=== PATIENT | female | born 1945 | race African-American/Black ===

== ENCOUNTER → 2016-09-02 | Outpatient (CLI) | payer MEDICARE, OTHER | LOC: WI 11:16 | PROVIDERS: ATTEND Internal Medicine | DX: Z12.31 Encounter for screening mammogram for malignant neoplasm of breast (principal) | CPT/HCPCS: 77067; G0202 ==

== ENCOUNTER → 2017-09-14 | Outpatient (CLI) | payer MEDICARE, OTHER ==
--- NOTE | 2017-09-14 12:47 | WOMENS IMAGING REPORT ---
EXAM DESCRIPTION: 3D SCREENING MAMMO BILAT COMPLETED DATE/TIME: 09/14/2017 12:25 pm REASON FOR STUDY: ROUTINE SCREENING;Z12.31 COMPARISON: [id number] TECHNIQUE: Standard craniocaudal and mediolateral oblique views of each breast recorded using digita l acquisition and breast tomosynthesis. LIMITATIONS: None. FINDINGS: No masses, calcifications or architectural distortion. No areas of suspicion. Read with the assistance of CAD. .[facility] - R2 Cenova Version 1.3 .[facility] Imaging - R2 Cenova Version 1.3 .[facility] - R2 Cenova Version 2.4 .[facility] [place] R2 Cenova Version 2.4 .[facility] - R2 Supervisory Training Specialist Version 9.2 IMPRESSION: NORMAL MAMMOGRAM. BIRADS 1. BREAST DENSITY: b. There are scattered areas of fibroglandular density. BIRAD: 1 NEGATIVE RECOMMENDATION: ROUTINE SCREENING COMMENT: The patient has been notified of the results by letter per MQSA requirements. Additional no tification policies are in place for contacting patient with suspicious or incomplete findings. Quality ID #[id number]: The [employer] recommends an annual screening mammogram for women aged 40 years or over. This facility utilizes a reminder system to ensure that all patients receive reminder letters, and/or direct phone calls for appointments. This includes reminders for routine scr eening mammograms, diagnostic mammograms, or other Breast Imaging Interventions when appropriate. Th is patient will be placed in the appropriate reminder system. The [employer] (ACR) has developed recommendations for screening MRI of the breast s in certain patient populations, to be used in conjunction with mammography. Breast MRI surveillanc e may be appropriate for women with more than 20% lifetime risk of developing breast cancer as deter mined by genetic testing, significant family history of the disease, or history of mantle radiation f or Hodgkins Disease. ACR Practice Guidelines 2008. DBT Technology DBT is a type of tomographic mammography. With conventional mammography, overlapping breast tissue ma y make lesions difficult to detect, even with good compression. DBT uses an x-ray tube that rotates a round the breast, taking images at different angles. These images are then combined to create thin sl ices of the breast that the radiologist can view as a 3D reconstruction. The [employer] unit can perform full-field digital mammograms (2D imaging); or DBT (3D imaging); or both, in a combination mode that quickly performs both the mammogram and the tomosynthesis scan while the breast is still compressed. PQRS 6045F: Fluoroscopic imaging is not utilized for breast tomosynthesis. TECHNICAL DOCUMENTATION: FINDING NUMBER: (1) ASSESSMENT: (1) JOB ID: [id number] [employer]- All Rights Reserved Reading location - IP/workstation name: [email or web address]
== END ==
LOC: WI 10:31
PROVIDERS: ATTEND Internal Medicine
DX: Z12.31 Encounter for screening mammogram for malignant neoplasm of breast (principal)
CPT/HCPCS: 77063; 77067

== ENCOUNTER → 2018-09-16 | Outpatient (CLI) | payer MEDICARE, OTHER ==
--- NOTE | 2018-09-16 12:13 | WOMENS IMAGING REPORT ---
EXAM DESCRIPTION: BILAT SCREENING MAMMO W/CAD COMPLETED DATE/TIME: 09/16/2018 11:41 am REASON FOR STUDY: Z12.31 ROUTINE BILATERAL [id number] ENCNTR SCREEN MAMMOGRAM FOR MALIGNANT NE OPLASM OF NAZ COMPARISON: MULTIPLE SINCE 2008 TECHNIQUE: Standard craniocaudal and mediolateral oblique views of each breast recorded using Vertascale[employer] l acquisition. LIMITATIONS: None. FINDINGS: RIGHT BREAST MASSES: No suspicious masses. CALCIFICATIONS: No new or suspicious calcifications. ARCHITECTURAL DISTORTION: None. DEVELOPING DENSITY: None. ASYMMETRY: None noted. OTHER: No other significant findings. LEFT BREAST MASSES: Subcentimeter nodule left breast laterally at 3 o'clock position 7 cm from the nipple for whi ch cone compression views, 90 mediolateral view, and left breast ultrasound are recommended for foll owup CALCIFICATIONS: No new or suspicious calcifications. ARCHITECTURAL DISTORTION: None. DEVELOPING DENSITY: None. ASYMMETRY: None noted. OTHER: No other significant findings. Read with the assistance of CAD. [facility] - R2 [employer] Version 9.2 IMPRESSION: No mammographic evidence for malignancy right breast. Subcentimeter nodule left breast laterally at 3 o'clock position 7 cm from the nipple for which cone compression views, 90 mediolateral view, and left breast ultrasound are recommended for followup BREAST DENSITY: b. There are scattered areas of fibroglandular density. BIRAD: 0 Incomplete: Needs Additional Imaging Evaluation and/or prior Mammograms for Comparison. RECOMMENDATION: RECOMMENDED FOLLOW-UP: Additional left breast diagnostic mammogram and ultrasound The patient will be contacted for additional imaging. COMMENT: The patient has been notified of the results by letter per SA requirements. Additional no tification policies are in place for contacting patient with suspicious or incomplete findings. Quality ID #225: The [employer] recommends an annual screening mammogram for women aged 40 years or over. This facility utilizes a reminder system to ensure that all patients receive reminder letters, and/or direct phone calls for appointments. This includes reminders for routine scr eening mammograms, diagnostic mammograms, or other Breast Imaging Interventions when appropriate. Th is patient will be placed in the appropriate reminder system. The [employer] (ACR) has developed recommendations for screening MRI of the breast s in certain patient populations, to be used in conjunction with mammography. Breast MRI surveillanc e may be appropriate for women with more than 20% lifetime risk of developing breast cancer as deter mined by genetic testing, significant family history of the disease, or history of mantle radiation f or Hodgkins Disease. ACR Practice Guidelines 2008. TECHNICAL DOCUMENTATION: FINDING NUMBER: (1) ASSESSMENT: (1) JOB ID: [id number] [employer]- All Rights Reserved Reading location - IP/workstation name: [email or web address]-
== END ==
LOC: WI 11:22
PROVIDERS: ATTEND Internal Medicine
DX: Z12.31 Encounter for screening mammogram for malignant neoplasm of breast (principal)
CPT/HCPCS: 77067

== ENCOUNTER → 2018-10-07 | Outpatient (CLI) | payer MEDICARE, OTHER ==
--- NOTE | 2018-10-07 10:26 | WOMENS IMAGING REPORT ---
EXAM DESCRIPTION: LEFT DIAGNOSTIC MAMMO W/CAD COMPLETED DATE/TIME: 10/07/2018 10:15 am REASON FOR STUDY: R92.2 INCONCLUSIVE MAMMOGRAM R92.2 INCONCLUSIVE MAMMOGRAM COMPARISON: 09/16/2018 TECHNIQUE: True lateral and cone compression views. LIMITATIONS: None. FINDINGS: BREAST LATERALITY: left MASSES: No suspicious masses. CALCIFICATIONS: No new or suspicious calcifications. ARCHITECTURAL DISTORTION: None. DEVELOPING DENSITY: None. ASYMMETRY: None noted. OTHER: No other significant findings. IMPRESSION: No evidence of malignancy. ASSESSMENT: BIRADS 1: NEGATIVE BREAST DENSITY: b. There are scattered areas of fibroglandular density. BIRAD: 1 Negative. RECOMMENDATION: RECOMMENDED FOLLOW UP: Birads 1 or 2: The patient should resume routine screening . SPECIFIC INTERVENTION/IMAGING/CONSULTATION RECOMMENDED:No additional intervention/ imaging/consultati on needed at this time. COMMUNICATION:The imaging findings were not discussed with the patient. Her referring provider has be en notified of the findings. COMMENT: The patient has been notified of the results by letter per SA requirements. Additional no tification policies are in place for contacting patient with suspicious or incomplete findings. Quality ID #225: The [employer] recommends an annual screening mammogram for women aged 40 years or over. This facility utilizes a reminder system to ensure that all patients receive reminder letters, and/or direct phone calls for appointments. This includes reminders for routine scr eening mammograms, diagnostic mammograms, or other Breast Imaging Interventions when appropriate. Th is patient will be placed in the appropriate reminder system. The [employer] (ACR) has developed recommendations for screening MRI of the breast s in certain patient populations, to be used in conjunction with mammography. Breast MRI surveillanc e may be appropriate for women with more than 20% lifetime risk of developing breast cancer as deter mined by genetic testing, significant family history of the disease, or history of mantle radiation f or Hodgkins Disease. ACR Practice Guidelines 2008. TECHNICAL DOCUMENTATION: FINDING NUMBER: (1) ASSESSMENT: (1) JOB ID: [id number] [employer]- All Rights Reserved Reading location - IP/workstation name: [email or web address]
== END ==
LOC: WI 09:53
PROVIDERS: ATTEND Internal Medicine
DX: R92.2 Inconclusive mammogram (principal)

== ENCOUNTER → 2018-12-07 | Outpatient (CLI) | payer MEDICARE, OTHER ==
--- NOTE | 2018-12-07 11:54 | RADIOLOGY REPORT (SQ) ---
EXAM DESCRIPTION: U/S RETROPERITON (RENAL/AORTA) COMPLETED DATE/TIME: 12/07/2018 11:14 am REASON FOR STUDY: R10.32 LEFT LOWER QUADRANT PAIN R10.32 LEFT LOWER QUADRANT PAIN COMPARISON: None. TECHNIQUE: Dynamic and static grayscale images acquired of the kidneys and bladder and recorded on P ACS. Additional selected color Doppler and spectral images recorded. LIMITATIONS: None. FINDINGS: RIGHT KIDNEY: Normal size measuring 10.1 cm. Normal echogenicity. No solid or suspicious m asses. No hydronephrosis. No calcifications. LEFT KIDNEY: Normal size measuring 10.3 cm. There is a hyperechoic area within the and interpolar c ortical region measuring 1.0 x 0.9 x 0.7 cm without color flow. No posterior shadowing. No hydroneph rosis. No calcifications. BLADDER: No masses. OTHER FINDINGS: No other significant finding. IMPRESSION: 1. No hydronephrosis. 2. 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 Dedicated renal protocol CT could be considered for further characterization. TECHNICAL DOCUMENTATION: JOB ID: [id number] [employer]- All Rights Reserved Reading location - IP/workstation name: [email or web address]
== END ==
LOC: RAD 10:29
PROVIDERS: ATTEND Internal Medicine
DX: R10.32 Left lower quadrant pain (principal)
CPT/HCPCS: 76770

== ENCOUNTER → 2018-12-10 | Outpatient (CLI) | payer MEDICARE, OTHER ==
--- NOTE | 2018-12-10 14:35 | RADIOLOGY REPORT (SQ) ---
EXAM DESCRIPTION: CT ABD/PELVIS WITH IV ONLY COMPLETED DATE/TIME: 12/10/2018 2:10 pm REASON FOR STUDY: R10.32 LEFT LOWER QUADRANT PAIN R10.32 LEFT LOWER QUADRANT PAIN COMPARISON: None. TECHNIQUE: CT scan of the abdomen and pelvis performed using helical scanning technique with dynamic intravenous contrast injection. No oral contrast. Images reviewed with lung, soft tissue, and bone windows. Reconstructed coronal and sagittal MPR images reviewed. Delayed images for evaluation of the urinary system also acquired. All images stored on PACS. All CT scanners at this facility use dose modulation, iterative reconstruction, and/or weight based d osing when appropriate to reduce radiation dose to as low as reasonably achievable (ALARA). [facility]: Dose Right [facility]: CareDose [facility]: Dose Right [facility]: Teradose 4D [facility]: [employer] CONTRAST TYPE AND DOSE: contrast/concentration: Isovue 350.00 mg/ml; Total Contrast Delivered: 89.0 ml; Total Saline Delivered: 70.0 ml RENAL FUNCTION: GFR > 60. RADIATION DOSE: CT Rad equipment meets quality standard of care and radiation dose reduction techniq ues were employed. CTDIvol: 8.6 - 9.9 mGy. DLP: 897 mGy-cm.. LIMITATIONS: None. FINDINGS: LOWER CHEST: No significant findings. No nodules or infiltrates. LIVER: Fatty. No lesions. SPLEEN: Normal size. No focal lesions. PANCREAS: No masses. No significant calcifications. No adjacent inflammation or peripancreatic fluid collections. Pancreatic duct not dilated. GALLBLADDER: No identified stones by CT criteria. No inflammatory changes to suggest cholecystitis. ADRENAL GLANDS: No significant masses or asymmetry. RIGHT KIDNEY AND URETER: No solid masses. No significant calcification. No hydronephrosis or hydroure ter. LEFT KIDNEY AND URETER: No solid masses. No significant calcification. No hydronephrosis or hydrouret er. AORTA AND VESSELS: No aneurysm. No dissection. Renal arteries, SMA, celiac without stenosis. RETROPERITONEUM: No retroperitoneal adenopathy, hemorrhage or masses. BOWEL AND PERITONEAL CAVITY: Distal colonic diverticulosis without active inflammatory change. No syd wel obstruction or ascites or abnormal gas. APPENDIX: Normal. PELVIS: No mass. No free fluid. Normal bladder. ABDOMINAL WALL: No masses. No hernias. BONES: Spondylosis. OTHER: No other significant finding. IMPRESSION: 1. No acute or suspicious abdominopelvic abnormality. TECHNICAL DOCUMENTATION: JOB ID: [id number] Quality ID # [id number]: Final reports with documentation of one or more dose reduction techniques (e.g., Au tomated exposure control, adjustment of the mA and/or kV according to patient size, use of iterative reconstruction technique) 2010 [employer]- All Rights Reserved Reading location - IP/workstation name: [email or web address]
== END ==
LOC: RAD 13:35
PROVIDERS: ATTEND Internal Medicine
DX: R10.32 Left lower quadrant pain (principal)
CPT/HCPCS: 74177; 82565

== ENCOUNTER 2019-11-02 12:33 | Observation (INO) | payer MEDICARE, OTHER ==
[~2019-11-02 12:33] MED LIST: GLYCOPYRROLATE 1 MG/5 ML VIAL ONE; NEOSTIGMINE METHYLSULFATE 10 MG/10 ML VIAL ONE; ONDANSETRON HCL INJ/PF 4 MG/2 ML SDV ONE; ROCURONIUM BROMIDE INJ 50 MG/5 ML VIAL IV ONE; SUCCINYLCHOLINE CHLORIDE INJ 200 MG/10 ML VIAL ONE
--- NOTE | 2019-11-02 13:22 | ER Document Report ---
ED Medical Screen (RME) - General Chief Complaint: Abdominal Pain Stated Complaint: ABDOMAINAL PAIN Time Seen by Provider: 11/02/19 13:18 Primary Care Provider: CHANO RODRIGUEZ MD [Primary Care Provider] - Follow up as needed Mode of Arrival: Ambulatory Information source: Patient Notes: 73-year-old female presented to ED for complaint of abdominal abdominal pain. She went to her primary care doctor they sent her for CT and it was diagnosed with appendicitis. She has not had any lab work or chest x-ray done. She does state that she last ate at noon she last had water at noon. She does have a history of high blood pressure diabetes and a hysterectomy. She does not smoke drink or do any drugs. She is alert oriented respirations are regular nonlabored. She does not appear to be in any distress but she states that her lower abdomen does hurt. I have greeted and performed a rapid initial assessment of this patient. A comprehensive ED assessment and evaluation of the patient, analysis of test results and completion of medical decision making process will be conducted by an additional ED providers. TRAVEL OUTSIDE OF THE [place] IN LAST 30 DAYS: No - Related Data Allergies/Adverse Reactions: No Known Allergies Allergy (Verified 11/02/19 13:16) Past Medical History - Past Medical History Cardiac Medical History: Reports: Hx Coronary Artery Disease, Hx Hypertension - medicated Denies: Hx Heart Attack Pulmonary Medical History: Denies: Hx Asthma, Hx Bronchitis, Hx COPD, Hx Pneumonia Neurological Medical History: Denies: Hx Cerebrovascular Accident, Hx Seizures GI Medical History: Denies: Hx Hepatitis, Hx Hiatal Hernia, Hx Ulcer Musculoskeltal Medical History: Reports Hx Arthritis Infectious Medical History: Denies: Hx Hepatitis Past Surgical History: Reports: Hx Hysterectomy. Denies: Hx Mastectomy, Hx Open Heart Surgery, Hx Pacemaker - Immunizations Hx Diphtheria, Pertussis, Tetanus Vaccination: Yes Physical Exam - Vital signs Vitals: Temp Pulse Resp BP Pulse Ox 98.8 F 98 18 134/70 H 96 11/02/19 12:41 11/02/19 12:41 11/02/19 12:41 11/02/19 12:41 11/02/19 12:41 Course - Vital Signs Vital signs: Temp Pulse Resp BP Pulse Ox 98.8 F 98 18 134/70 H 96 11/02/19 12:41 11/02/19 12:41 11/02/19 12:41 11/02/19 12:41 11/02/19 12:41 Doctor's Discharge - Discharge Referrals: CHANO RODRIGUEZ MD [Primary Care Provider] - Follow up as needed
[2019-11-02] MEDS ORDERED: RINGERS SOLUTION,LACTATED 1,000 ML IV ONE (13:24)
[2019-11-02] MEDS ORDERED: PIPERACILLIN/TAZOBACTAM 3.375 GM VIAL IV ONE (14:03)
--- NOTE | 2019-11-02 14:04 | ER Document Report ---
ED General - General Chief Complaint: Abdominal Pain Stated Complaint: ABDOMAINAL PAIN Time Seen by Provider: 11/02/19 13:18 Primary Care Provider: CHANO RODRIGUEZ MD [Primary Care Provider] - Follow up as needed Mode of Arrival: Ambulatory Information source: Patient TRAVEL OUTSIDE OF THE [place] IN LAST 30 DAYS: No - HPI Onset: Other - Since Thursday Onset/Duration: Gradual Quality of pain: Cramping Severity: Moderate Pain Level: 3 Associated symptoms: Nausea, Vomiting, Other - Abdominal Pain Exacerbated by: Food Relieved by: Denies Similar symptoms previously: No Recently seen / treated by doctor: Yes - patient saw her PCP earlier in the week and she had an outpatient CT today Notes: 73 year old female with a history of HTN, CAD, and DM here in the ER for evaluation of appendicitis seen on outpatient CT. The patient has been having lower abdominal pain with nausea and vomiting since Thursday. The patient says the pain is in her lower mid abdomen but it is also present in the LLQ and RLQ. The patient had the outpatient CT scan ordered by her PCP. The patient denies fevers but she has had some chills. - Related Data Allergies/Adverse Reactions: No Known Allergies Allergy (Verified 11/02/19 13:16) Past Medical History - General Information source: Patient - Social History Smoking Status: Never Smoker Frequency of alcohol use: None Drug Abuse: None Lives with: Family Family History: Reviewed & Not Pertinent Patient has suicidal ideation: No Patient has homicidal ideation: No - Past Medical History Cardiac Medical History: Reports: Hx Coronary Artery Disease, Hx Hypertension - medicated Denies: Hx Heart Attack Pulmonary Medical History: Denies: Hx Asthma, Hx Bronchitis, Hx COPD, Hx Pneumonia Neurological Medical History: Denies: Hx Cerebrovascular Accident, Hx Seizures GI Medical History: Denies: Hx Hepatitis, Hx Hiatal Hernia, Hx Ulcer Musculoskeletal Medical History: Reports Hx Arthritis Infectious Medical History: Denies: Hx Hepatitis Past Surgical History: Reports: Hx Hysterectomy. Denies: Hx Mastectomy, Hx Open Heart Surgery, Hx Pacemaker - Immunizations Hx Diphtheria, Pertussis, Tetanus Vaccination: Yes Review of Systems - Review of Systems Constitutional: No symptoms reported EENT: No symptoms reported Cardiovascular: No symptoms reported Respiratory: No symptoms reported Gastrointestinal: Abdominal pain, Nausea, Vomiting Genitourinary: No symptoms reported Female Genitourinary: No symptoms reported Musculoskeletal: No symptoms reported Skin: No symptoms reported Hematologic/Lymphatic: No symptoms reported Neurological/Psychological: No symptoms reported -: Yes All other systems reviewed and negative Physical Exam - Vital signs Vitals: Temp Pulse Resp BP Pulse Ox 98.8 F 98 18 134/70 H 96 11/02/19 12:41 11/02/19 12:41 11/02/19 12:41 11/02/19 12:41 11/02/19 12:41 - Notes Notes: GENERAL: Well-appearing, well-nourished and in no acute distress. HEAD: Atraumatic, normocephalic. EYES: Pupils equal round and reactive to light, extraocular movements intact, sclera anicteric, conjunctiva are normal. ENT: External ears normal, nares patent, oropharynx clear without exudates. Moist mucous membranes. NECK: Normal range of motion, supple without lymphadenopathy or JVD. LUNGS: Breath sounds clear to auscultation bilaterally and equal. No wheezes rales or rhonchi. HEART: Regular rate and rhythm without murmurs, rubs or gallops. ABDOMEN: Soft, moderate tenderness in suprapubic area, mild tenderness in LLQ and RLQ areas. Normoactive bowel sounds. No guarding, no rebound. No masses appreciated. EXTREMITIES: Normal range of motion, no pitting or edema. No clubbing or cyanosis. NEUROLOGICAL: Cranial nerves II through XII grossly intact. Normal speech, normal gait. PSYCH: Normal mood, normal affect. SKIN: Warm, Dry, normal turgor, no rashes or lesions noted. Course - Re-evaluation Re-evalutation: 11/02/19 14:43 The patient has been having lower abdominal pain since Thursday with nausea and vomiting. Outpatient CT from today shows acute appendicitis. Patient had labs drawn in the ER and antibiotics and fluids started. Dr. Reid of Surgery was co nsulted and he will see the patient and likely admit her from the ER. 11/02/19 15:21 Patient admitted to Surgical Service for further treatment and care. - Vital Signs Vital signs: Temp Pulse Resp BP Pulse Ox 98.7 F 98 18 134/70 H 98 11/02/19 14:04 11/02/19 12:41 11/02/19 12:41 11/02/19 12:41 11/02/19 14:36 - Laboratory Result Diagrams: 11/02/19 14:10 11/02/19 14:10 Laboratory results interpreted by me: 11/02/19 11/02/19 11/02/19 14:10 14:10 14:49 RDW 14.8 H Sodium 135.7 L Potassium 3.5 L Glucose 141 H AST 50 H Urine Protein 30 H - Diagnostic Test Radiology reviewed: Image reviewed, Reports reviewed Discharge - Discharge Clinical Impression: Acute appendicitis Qualifiers: Acute appendicitis type: unspecified acute appendicitis type Qualified Code(s): K35.80 - Unspecified acute appendicitis Condition: Stable Disposition: ADMITTED INPATIENT Admitting Provider: Surgicalist Unit Admitted: Surgical Floor Referrals: CHANO RODRIGUEZ MD [Primary Care Provider] - Follow up as needed
[2019-11-02 14:30] LABS: ABSOLUTE BASOPHILS # (AUTO) 0.1 10^3/uL (0.0-0.2); ABSOLUTE EOSINOPHILS # (AUTO) 0.1 10^3/uL (0.0-0.6); ABSOLUTE LYMPHOCYTES (AUTO) 1.4 10^3/uL (0.5-4.7); ABSOLUTE MONOCYTES (AUTO) 1.2 10^3/uL (0.1-1.4); ABSOLUTE NEUT (AUTO) 6.2 10^3/uL (1.7-8.2); BASOPHILS % (AUTO) 0.8 % (0-2); EOSINOPHILS % (AUTO) 1.1 % (0-6); HEMATOCRIT 38.8 % (36.0-47.0); HEMOGLOBIN 13.2 g/dL (12.0-15.5); LYMPHOCYTES % (AUTO) 15.7 % (13-45); MEAN CORPUSCULAR HEMOGLOBIN 30.5 pg (27.0-33.4); MEAN CORPUSCULAR VOLUME 90 fl (80-97); PLATELET COUNT 257 10^3/uL (150-450); RED BLOOD COUNT 4.33 10^6/uL (3.72-5.28); RED CELL DISTRIBUTION WIDTH 14.8 % (11.5-14.0); SEGMENTED NEUTROPHILS % (AUTO) 69.4 % (42-78); TOTAL CELLS COUNTED % (AUTO) 100 %
--- NOTE | 2019-11-02 14:30 | RADIOLOGY REPORT (SQ) ---
EXAM DESCRIPTION: CHEST SINGLE VIEW IMAGES COMPLETED DATE/TIME: 11/02/2019 2:14 pm REASON FOR STUDY: Appendicitis COMPARISON: PA and lateral views of the chest from 11/30/2014. EXAM PARAMETERS: NUMBER OF VIEWS: One view. TECHNIQUE: An AP view of the chest was obtained. RADIATION DOSE: NA LIMITATIONS: None. FINDINGS: LUNGS AND PLEURA: No consolidation, pleural effusion or pneumothorax. MEDIASTINUM AND HILAR STRUCTURES: No mediastinal or hilar contour abnormality. HEART AND VASCULAR STRUCTURES: The cardiac silhouette and pulmonary vasculature are within normal grimes its. BONES: No acute findings. HARDWARE: None in the chest. OTHER: No other finding. IMPRESSION: No acute cardiopulmonary process. TECHNICAL DOCUMENTATION: JOB ID: [id number] 2010 [employer]- All Rights Reserved Reading location - IP/workstation name: [email or web address]
[2019-11-02 14:38] LABS: PROTHROMBIN TIME 14.2 SEC (11.4-15.4)
[2019-11-02 14:39] LABS: PARTIAL THROMBOPLASTIN TIME 29.5 SEC (23.5-35.8)
[2019-11-02 14:47] LABS: ALBUMIN 4.1 g/dL (3.5-5.0); ALKALINE PHOSPHATASE 95 U/L (38-126); ANION GAP 11 (5-19); ASPARTATE AMINO TRANSFERASE 50 U/L (14-36); BILIRUBIN,DIRECT 0.1 mg/dL (0.0-0.4); BILIRUBIN,TOTAL 0.7 mg/dL (0.2-1.3); BLOOD UREA NITROGEN 14 mg/dL (7-20); CALCIUM 9.1 mg/dL (8.4-10.2); CARBON DIOXIDE 24 mmol/L (22-30); CHLORIDE 101 mmol/L (98-107); GLUCOSE 141 mg/dL (75-110); POTASSIUM 3.5 mmol/L (3.6-5.0); TOTAL PROTEIN 7.3 g/dL (6.3-8.2)
[2019-11-02 15:07] LABS: APPEARANCE,URINE CLOUDY; BILIRUBIN,URINE NEGATIVE (NEGATIVE); COLOR,URINE AMBER; GLUCOSE, URINE NEGATIVE (NEGATIVE); KETONES,URINE NEGATIVE (NEGATIVE); LEUKOCYTE ESTERASE,URINE NEGATIVE (NEGATIVE); NITRITE,URINE NEGATIVE (NEGATIVE); PROTEIN,URINE 30 mg/dL (NEGATIVE); URINE SPECIFIC GRAVITY 1.019; UROBILINOGEN,URINE NEGATIVE mg/dL (<2.0)
[2019-11-02] MEDS ORDERED: MORPHINE SULFATE 10 MG/ML INJ IV PRN ×2 (15:15→18:10)
[2019-11-02] MEDS ORDERED: ONDANSETRON HCL INJ/PF 4 MG/2 ML SDV IV PRN ×2 (15:15→18:10)
[2019-11-02] MEDS ORDERED: DEXTROSE 5%-LACTATED RINGERS 1,000 ML IV PRN (15:15)
[2019-11-02] MEDS ORDERED: BUPIVACAINE HCL 0.25 % INJ/PF (2.5 MG/1 ML) 30 ML VIAL ONE (15:19)
--- NOTE | 2019-11-02 15:27 | PDOC H&P ---
History of Present Illness Admission Date/PCP: CHANO RODRIGUEZ Patient complains of: Right lower quadrant abdominal pain History of Present Illness: MIRELLA BRYAN is a 73 year old female with a 3-day history of sharp abdominal pain that began in the periumbilical region, and has progressed into the right lower quadrant. The patient denies fevers, chills, headache, chest pain, nausea, vomiting. She does report diarrhea, and waxing/waning right lower quadrant abdominal pain. Her pain is rated as 2 out of 10 currently. She reports worsening with palpation or jarring movements. The pain seems to get better on its own. The patient presented to her medical doctor today, and a CT scan of the abdomen was ordered. Her CT scan shows thickening and inflammation surrounding the appendix. Surgery was consulted for definitive management. Past Medical History Cardiac Medical History: Reports: Coronary Artery Disease, Hypertension - medicated Denies: Myocardial Infarction Pulmonary Medical History: Denies: Asthma, Bronchitis, Chronic Obstructive Pulmonary Disease (COPD), Pneumonia Neurological Medical History: Denies: Seizures GI Medical History: Denies: Hepatitis, Hiatal Hernia Musculoskeltal Medical History: Reports: Arthritis Hematology: Denies: Anemia, Sickle Cell Disease Past Surgical History Past Surgical History: Reports: Hysterectomy Denies: Amputation, Mastectomy, Pacemaker Social History Lives with: Family Smoking Status: Never Smoker Electronic Cigarette use?: No Frequency of Alcohol Use: None Hx Recreational Drug Use: No Hx Prescription Drug Abuse: No Family History Family History: Reviewed & Not Pertinent Parental Family History Reviewed: Yes Children Family History Reviewed: Yes Sibling(s) Family History Reviewed.: Yes Medication/Allergy Home Medications: Tolterodine Tartrate [Detrol] 4 mg PO DAILY 02/18/12 Valsartan/Hydrochlorothiazide [Diovan Hct 80-12.5 mg Tablet] 1 each PO DAILY 09/23/13 Ibuprofen [Motrin 800 mg Tablet] 800 mg PO Q8H PRN 08/15/15 Metformin HCl 500 mg PO BID 08/15/15 Allopurinol [Zyloprim 300 mg Tablet] 300 mg PO DAILY 11/02/19 Aspirin [Ecotrin 81 mg EC Tablet] 81 mg PO DAILY 11/02/19 Estrogens,Conjugated [Premarin 0.3 mg Tablet] 0.3 mg PO Q2D 11/02/19 Ezetimibe [Zetia 10 mg Tablet] 10 mg PO DAILY 11/02/19 Linaclotide [Linzess 145 Mcg Capsule] 145 mg PO DAILYP PRN 11/02/19 Allergies/Adverse Reactions: No Known Allergies Allergy (Verified 11/02/19 13:16) Review of Systems Constitutional: ABSENT: anorexia, chills, fatigue, fever(s), headache(s), weakness Eyes: ABSENT: visual disturbances Ears: ABSENT: hearing changes Nose, Mouth, and Throat: ABSENT: sore throat Cardiovascular: ABSENT: chest pain Respiratory: ABSENT: cough, dyspnea Gastrointestinal: PRESENT: abdominal pain, diarrhea. ABSENT: nausea, vomiting Genitourinary: ABSENT: dysuria Integumentary: ABSENT: pruritus, rash Neurological: ABSENT: confusion, convulsions, dizziness Psychiatric: ABSENT: anxiety, depression Endocrine: ABSENT: cold intolerance, heat intolerance Hematologic/Lymphatic: ABSENT: easy bleeding, easy bruising Physical Exam Vital Signs: Temp Pulse Resp BP Pulse Ox 98.7 F 98 18 134/70 H 98 11/02/19 14:04 11/02/19 12:41 11/02/19 12:41 11/02/19 12:41 11/02/19 14:36 Intake & Output 11/01/19 11/02/19 11/03/19 06:59 06:59 06:59 Weight 79.8 kg General appearance: PRESENT: no acute distress, cooperative Head exam: PRESENT: atraumatic, normocephalic Eye exam: PRESENT: EOMI, PERRLA. ABSENT: scleral icterus Mouth exam: PRESENT: moist, neck supple Neck exam: ABSENT: meningismus, tenderness, thyromegaly, tracheal deviation Respiratory exam: PRESENT: unlabored. ABSENT: tachypnea, wheezes Cardiovascular exam: ABSENT: tachycardia Vascular exam: PRESENT: normal capillary refill GI/Abdominal exam: PRESENT: guarding - Right lower quadrant, soft, tenderness - Right lower quadrant. ABSENT: distended, firm Rectal exam: PRESENT: deferred Extremities exam: ABSENT: clubbing Musculoskeletal exam: ABSENT: deformity Neurological exam: PRESENT: alert, awake, oriented to person, oriented to place, oriented to time, oriented to situation, CN II-XII grossly intact. ABSENT: motor sensory deficit Psychiatric exam: ABSENT: agitated, anxious, depressed Focused psych exam: ABSENT: delusional Skin exam: ABSENT: cyanosis, erythema, jaundice Results Laboratory Results: 11/02/19 14:10 11/02/19 14:10 11/02/19 11/02/19 11/02/19 14:10 14:10 14:49 WBC 9.0 RBC 4.33 Hgb 13.2 Hct 38.8 MCV 90 MCH 30.5 MCHC 34.0 RDW 14.8 H Plt Count 257 Seg Neutrophils % 69.4 Sodium 135.7 L Potassium 3.5 L Chloride 101 Carbon Dioxide 24 Anion Gap 11 BUN 14 Creatinine 0.89 Est GFR ( Amer) > 60 Glucose 141 H Calcium 9.1 Total Bilirubin 0.7 AST 50 H Alkaline Phosphatase 95 Total Protein 7.3 Albumin 4.1 Lipase 43.6 Urine Color ALLISON Urine Appearance CLOUDY Urine pH 5.0 Ur Specific [place] 1.019 Urine Protein 30 H Urine Glucose (UA) NEGATIVE Urine Ketones NEGATIVE Urine Blood NEGATIVE Urine Nitrite NEGATIVE Ur Leukocyte Esterase NEGATIVE Urine WBC (Auto) 6 Urine RBC (Auto) 1 Impressions: Chest X-Ray 11/02/19 13:23 IMPRESSION: No acute cardiopulmonary process. Assessment & Plan - Diagnosis (1) Acute appendicitis Qualifiers: Acute appendicitis type: unspecified acute appendicitis type Qualified Code(s): K35.80 - Unspecified acute appendicitis Is this a current diagnosis for this admission?: Yes - Plan Summary Plan Summary: This is a 73-year-old female with right lower quadrant pain, persisting over the last 2 to 3 days. She has a CT scan which I have reviewed. She has thickening of the appendix with periappendiceal inflammation and stranding. I believe the patient is experiencing acute appendicitis. I have discussed options with her, including operative versus nonoperative management. The patient has chosen operative intervention. Risks/benefits discussed, informed consent obtained, and all questions answered. Judy Encarnacion. COVID-19 testing. N.p.o.
[2019-11-02] MEDS: NORMAL SALINE 1000 ML 1,000 ML IV PRN ×2 (15:47→21:54)
[2019-11-02] MEDS ORDERED: FENTANYL CITRATE INJ/PF 100 MCG/2 ML AMPUL ONE (17:08)
[2019-11-02] MEDS ORDERED: MIDAZOLAM 2 MG/2 ML INJ ONE (17:08)
[2019-11-02] MEDS ORDERED: MORPHINE SULFATE 10 MG/ML INJ ONE (17:09)
[2019-11-02] MEDS ORDERED: PROPOFOL INJ 200 MG/20 ML VIAL IV ONE (17:09)
[2019-11-02] MEDS ORDERED: SUGAMMADEX SODIUM 200 MG/2 ML SDV IV ONE (17:15)
[2019-11-02] MEDS ORDERED: PROMETHAZINE HCL INJ 25 MG/1 ML VIAL IV PRN (18:10)
[2019-11-02] MEDS ORDERED: DIPHENHYDRAMINE HCL 50 MG/ML VIAL IV PRN (18:10)
[2019-11-02] MEDS ORDERED: OXYCODONE-ACETAMINOPHEN 5-325 MG TABLET PO PRN ×2 (18:10)
[2019-11-02] MEDS ORDERED: FENTANYL CITRATE INJ/PF 100 MCG/2 ML AMPUL IV PRN ×3 (18:10)
[2019-11-02] MEDS ORDERED: MEPERIDINE HCL/PF INJ 25 MG/1 ML DISP.SYRIN IV PRN (18:10)
--- NOTE | 2019-11-02 19:09 | Operative Report ---
Nonrecallable Operative Report DATE OF SURGERY: 11/02/19 PREOPERATIVE DIAGNOSIS: Acute appendicitis POSTOPERATIVE DIAGNOSIS: Acute nonperforated appendicitis OPERATION: Laparoscopic appendectomy SURGEON: CORRINE COLLAZO ANESTHESIA: GA TISSUE REMOVED OR ALTERED: Appendix COMPLICATIONS: None apparent ESTIMATED BLOOD LOSS: Minimal PROCEDURE: Drains/implants: None. Procedure in detail: After informed consent was obtained, the patient was brought to the operating room and laid in the supine position. The area of the abdomen was prepped and draped in a normal sterile fashion. A supraumbilical incision was created with a 15 blade scalpel. Dissection was carried through the subcutaneous tissues using sharp and blunt dissection. The linea alba fascia was incised sharply, the abdomen was entered sharply. The balloon trocar was inserted, and pneumoperitoneum was achieved. A suprapubic 5 mm port was then placed under direct laparoscopic visualization. Another 5 mm port was placed in the left lower quadrant in similar fashion. Atraumatic graspers were placed through the 5 mm ports. The appendix was found to be adherent to the right pelvic sidewall. Using blunt dissection the appendix was freed from the right pelvic sidewall. The mesoappendix was then taken down using harmonic scalpel. 2 PDS Endoloops were then secured around the base of the appendix. The appendix was amputated using the harmonic scalpel. The appendix was placed into an Endo Catch bag and pulled out through the supraumbilical port. The camera was then reinserted. The right lower quadrant was inspected. It was found to be free of hemorrhage. Once this was confirmed, the 5 mm trochars were removed under direct laparoscopic visualization. The supraumbilical trocar was removed, and pneumoperitoneum was relieved. The supraumbilical fascia was closed using 0 Vicryl suture in nzmish-ek-yaarb fashion. The overlying skin was closed using 4-0 Vicryl Rapide suture in subcuticular fashion. All sponge, instrument, and needle counts were correct x2. Condition: Stable.
[2019-11-02] MEDS: PIPERACILLIN SODIUM/TAZOBACTAM 3.375 GM in NORMAL SALINE 100 ML IV SCH (21:54)
[2019-11-02] MEDS: FAMOTIDINE INJ/PF 20 MG/2 ML SDV IV SCH (21:58)
[2019-11-02] MEDS: HYDROCODONE/ACETAMINOPHEN 10-325 MG TABLET PO PRN (23:01)
[2019-11-03] MEDS: PIPERACILLIN SODIUM/TAZOBACTAM 3.375 GM in NORMAL SALINE 100 ML IV SCH ×2 (02:57→08:23)
--- NOTE | 2019-11-03 07:58 | EKG REPORT ---
SEVERITY:- ABNORMAL ECG - SINUS RHYTHM NONSPECIFIC T ABNORMALITIES, INFERIOR LEADS : Confirmed by: Kristy Gooden MD 03-Nov-2019 07:56:58
[2019-11-03] MEDS: IBUPROFEN 800 MG TABLET PO SCH ×2 (08:22→11:23)
[2019-11-03] MEDS: HYDROCODONE/ACETAMINOPHEN 10-325 MG TABLET PO PRN (08:22)
--- NOTE | 2019-11-03 09:33 | PDOC DISCHARGE SUMMARY ---
General - Admit/Disc Date/PCP Admission Date/Primary Care Provider: 11/02/19 15:34 CHANO RODRIGUEZ Discharge Date: 11/03/19 - Discharge Diagnosis Final Diagnosis: Acute appendicitis - Assessment Summary: Patient is a 73-year-old old white female, previously healthy, presents emergency department with acute onset abdominal pain right lower quadrant with tenderness. She was found on CT scan imaging of the abdomen to have findings consistent with acute appendicitis. Patient was taken to the operating room by Dr. Reid on 11/02/2019 and underwent laparoscopic appendectomy. She was found to have acute appendicitis. She tolerated the procedure well. She recovered uneventfully, started on a diet, voided, and had no postoperative complications. By the morning of the first postoperative day she was felt to receive maximum benefit from hospitalization was discharged home. She will take Tylenol Motrin as needed pain, shower, and follow-up with Dr. Corea and/or Associates at [facility] in 1 to 2 weeks. She will resume her preoperative medications, diet, and activity. - Additional Information Resuscitation Status: Full Code Discharge Diet: As Tolerated Discharge Activity: Activity As Tolerated - Patient may shower; See discharge summary Referrals: CORRINE REID MD [ACTIVE STAFF] - (11/01 S/P [facility] APPY) Home Medications: Tolterodine Tartrate [Detrol] 4 mg PO DAILY 02/18/12 Valsartan/Hydrochlorothiazide [Diovan Hct 80-12.5 mg Tablet] 1 each PO DAILY 09/23/13 Ibuprofen [Motrin 800 mg Tablet] 800 mg PO Q8H PRN 08/15/15 Metformin HCl 500 mg PO BID 08/15/15 Allopurinol [Zyloprim 300 mg Tablet] 300 mg PO DAILY 11/02/19 Aspirin [Ecotrin 81 mg EC Tablet] 81 mg PO DAILY 11/02/19 Estrogens,Conjugated [Premarin 0.3 mg Tablet] 0.3 mg PO Q2D 11/02/19 Ezetimibe [Zetia 10 mg Tablet] 10 mg PO DAILY 11/02/19 Linaclotide [Linzess 145 Mcg Capsule] 145 mg PO DAILYP PRN 11/02/19 History of Present Illiness History of Present Illness: MIRELLA BRYAN is a 73 year old female Physical Exam Vital Signs: Temp Pulse Resp BP Pulse Ox 97.9 F 82 16 106/66 96 11/03/19 07:00 11/03/19 07:00 11/03/19 07:00 11/03/19 07:00 11/03/19 07:00 Intake & Output 11/02/19 11/03/19 11/04/19 06:59 06:59 06:59 Intake Total 3202 Output Total 25 Balance 3177 Weight 79.8 kg Results Laboratory Results: WBC 9.0 10^3/uL (4.0-10.5) 11/02/19 14:10 RBC 4.33 10^6/uL (3.72-5.28) 11/02/19 14:10 Hgb 13.2 g/dL (12.0-15.5) 11/02/19 14:10 Hct 38.8 % (36.0-47.0) 11/02/19 14:10 MCV 90 fl (80-97) 11/02/19 14:10 MCH 30.5 pg (27.0-33.4) 11/02/19 14:10 MCHC 34.0 g/dL (32.0-36.0) 11/02/19 14:10 RDW 14.8 % (11.5-14.0) H 11/02/19 14:10 Plt Count 257 10^3/uL (150-450) 11/02/19 14:10 Lymph % (Auto) 15.7 % (13-45) 11/02/19 14:10 [place] % (Auto) 13.0 % (3-13) 11/02/19 14:10 Eos % (Auto) 1.1 % (0-6) 11/02/19 14:10 Baso % (Auto) 0.8 % (0-2) 11/02/19 14:10 Absolute Neuts (auto) 6.2 10^3/uL (1.7-8.2) 11/02/19 14:10 Absolute Lymphs (auto) 1.4 10^3/uL (0.5-4.7) 11/02/19 14:10 Absolute Monos (auto) 1.2 10^3/uL (0.1-1.4) 11/02/19 14:10 Absolute Eos (auto) 0.1 10^3/uL (0.0-0.6) 11/02/19 14:10 Absolute Basos (auto) 0.1 10^3/uL (0.0-0.2) 11/02/19 14:10 Seg Neutrophils % 69.4 % (42-78) 11/02/19 14:10 PT 14.2 SEC (11.4-15.4) 11/02/19 14:10 INR 1.10 11/02/19 14:10 APTT 29.5 SEC (23.5-35.8) 11/02/19 14:10 Sodium 135.7 mmol/L (137-145) L 11/02/19 14:10 Potassium 3.5 mmol/L (3.6-5.0) L 11/02/19 14:10 Chloride 101 mmol/L (98-107) 11/02/19 14:10 Carbon Dioxide 24 mmol/L (22-30) 11/02/19 14:10 Anion Gap 11 (5-19) 11/02/19 14:10 BUN 14 mg/dL (7-20) 11/02/19 14:10 Creatinine 0.89 mg/dL (0.52-1.25) 11/02/19 14:10 Est GFR ( Amer) > 60 (>60) 11/02/19 14:10 Est GFR (MDRD) Non-Af > 60 (>60) 11/02/19 14:10 Glucose 141 mg/dL (75-110) H 11/02/19 14:10 POC Glucose 111 mg/dL (70-110) H 11/02/19 18:50 Calcium 9.1 mg/dL (8.4-10.2) 11/02/19 14:10 Total Bilirubin 0.7 mg/dL (0.2-1.3) 11/02/19 14:10 Direct Bilirubin 0.1 mg/dL (0.0-0.4) 11/02/19 14:10 Neonat Total Bilirubin Not Reportable 11/02/19 14:10 Neonat Direct Bilirubin Not Reportable 11/02/19 14:10 Neonat Indirect Bili Not Reportable 11/02/19 14:10 AST 50 U/L (14-36) H 11/02/19 14:10 ALT 31 U/L (<35) 11/02/19 14:10 Alkaline Phosphatase 95 U/L (38-126) 11/02/19 14:10 Total Protein 7.3 g/dL (6.3-8.2) 11/02/19 14:10 Albumin 4.1 g/dL (3.5-5.0) 11/02/19 14:10 Lipase 43.6 U/L (23-300) 11/02/19 14:10 Urine Color ALLISON 11/02/19 14:49 Urine Appearance CLOUDY 11/02/19 14:49 Urine pH 5.0 (5.0-9.0) 11/02/19 14:49 Ur Specific [place] 1.019 11/02/19 14:49 Urine Protein 30 mg/dL (NEGATIVE) H 11/02/19 14:49 Urine Glucose (UA) NEGATIVE mg/dL (NEGATIVE) 11/02/19 14:49 Urine Ketones NEGATIVE mg/dL (NEGATIVE) 11/02/19 14:49 Urine Blood NEGATIVE (NEGATIVE) 11/02/19 14:49 Urine Nitrite NEGATIVE (NEGATIVE) 11/02/19 14:49 Urine Bilirubin NEGATIVE (NEGATIVE) 11/02/19 14:49 Urine Urobilinogen NEGATIVE mg/dL (<2.0) 11/02/19 14:49 Ur Leukocyte Esterase NEGATIVE (NEGATIVE) 11/02/19 14:49 Urine WBC (Auto) 6 /HPF 11/02/19 14:49 Urine RBC (Auto) 1 /HPF 11/02/19 14:49 U Hyaline Cast (Auto) 25 /LPF 11/02/19 14:49 Urine Bacteria (Auto) TRACE /HPF 11/02/19 14:49 Squamous Epi Cells Auto 17 /HPF 11/02/19 14:49 Urine Mucus (Auto) FEW /LPF 11/02/19 14:49 Urine Ascorbic Acid NEGATIVE (NEGATIVE) 11/02/19 14:49 SARS-CoV-2 (PCR) NEGATIVE (NEGATIVE) 11/02/19 15:26 Impressions: Chest X-Ray 11/02/19 13:23 IMPRESSION: No acute cardiopulmonary process.
[2019-11-03 10:43] VITALS: BP 124/78
[2019-11-03] MEDS: FAMOTIDINE INJ/PF 20 MG/2 ML SDV IV SCH (11:01)
== END 2019-11-03 11:48 | disposition home or self-care (01) ==
LOC: ER 12:33 → EH 15:34 → 4W 19:34
PROVIDERS: ATTEND Surgery
DX: K35.30 Acute appendicitis with localized peritonitis, without perforation or gangrene (principal); I10 Essential (primary) hypertension; I25.10 Atherosclerotic heart disease of native coronary artery without angina pectoris; Z90.49 Acquired absence of other specified parts of digestive tract; Z79.82 Long term (current) use of aspirin; Z03.818 Encounter for observation for suspected exposure to other biological agents ruled out; E11.9 Type 2 diabetes mellitus without complications; Z79.84 Long term (current) use of oral hypoglycemic drugs; Z90.710 Acquired absence of both cervix and uterus
CPT/HCPCS: 44970; 93005; 36415; 82962; 83690; 85025; 85610; 85730; 80053; 81001; 88304 ×2; 71045; 93010; 99140; 00840; U0003; J2250; J3490 ×3; A9270 ×3; J3010; J2710; J0330; J2405; J7050 ×2; J7030; J7120; J2704; S0028; J2543 ×2; C9803; 74176; 840; 87635; 96361; 96365; 99285; J2270

== ENCOUNTER → 2019-11-02 | Outpatient (CLI) | payer MEDICARE, OTHER ==
--- NOTE | 2019-11-02 12:16 | RADIOLOGY REPORT (SQ) ---
EXAM DESCRIPTION: CT ABD/PELVIS ORAL ONLY IMAGES COMPLETED DATE/TIME: 11/02/2019 10:24 am REASON FOR STUDY: LOWER ABDOMINAL PAIN, UNSPECIFIED R10.30 LOWER ABDOMINAL PAIN, UNSPECIFIED COMPARISON: CT abdomen pelvis 12/10/2018 TECHNIQUE: CT scan of the abdomen and pelvis performed without intravenous contrast. Images reviewed with lung, soft tissue, and bone windows. Reconstructed coronal and sagittal MPR images reviewed. Al l images stored on PACS. All CT scanners at this facility use dose modulation, iterative reconstruction, and/or weight based d osing when appropriate to reduce radiation dose to as low as reasonably achievable (ALARA). [facility]: Dose Right [facility]: CareDose [facility]: Dose Right [facility]: Teradose 4D [facility]: [employer] RADIATION DOSE: CT Rad equipment meets quality standard of care and radiation dose reduction techniq ues were employed. CTDIvol: 10.0 mGy. DLP: 550 mGy-cm.mGy. LIMITATIONS: None. FINDINGS: The appendix is diffusely enlarged, with mild surrounding inflammation in the periappendic eal fat. Findings are worrisome for acute appendicitis. No adjacent abscess or free air. Report called to MEGAN Mina at Dr. Lizarraga's office, 1148 hours 11/02/2019 LOWER CHEST: No significant findings. No nodules or infiltrates. NON-CONTRASTED LIVER, SPLEEN, ADRENALS: Evaluation limited by lack of IV contrast. No identified sign ificant masses. Fatty infiltration of the liver PANCREAS: No masses. No peripancreatic inflammatory changes. GALLBLADDER: No identified stones by CT criteria. No inflammatory changes to suggest cholecystitis. RIGHT KIDNEY AND URETER: No suspicious masses. Assessment limited by lack of IV contrast. No signif icant calcifications. No hydronephrosis or hydroureter. LEFT KIDNEY AND URETER: No suspicious masses. Assessment limited by lack of IV contrast. No signifi cant calcifications. No hydronephrosis or hydroureter. AORTA AND RETROPERITONEUM: No aneurysm. No retroperitoneal masses or adenopathy. BOWEL AND PERITONEAL CAVITY: Patient drank oral contrast. No obvious masses or inflammatory changes . No free fluid. Scattered colonic diverticuli without CT signs of acute diverticulitis APPENDIX: The appendix is diffusely enlarged, with mild surrounding inflammation in the periappendiceal fat. F indings are worrisome for acute appendicitis. No adjacent abscess or free air. Report called to MEGAN Mina at Dr. Lizarraga's office, 1148 hours 11/02/2019 PELVIS, BLADDER, AND ABDOMINAL WALL:No abnormal masses. No free fluid. Bladder normal. Post hysterec chante BONES: No significant findings. OTHER: No other significant finding. IMPRESSION: Acute appendicitis COMMENT: Report called to MEGAN Mina at Dr. Lizarraga's office, 1148 hours 11/02/2019 Quality ID # [id number]: Final reports with documentation of one or more dose reduction techniques (e.g., Au tomated exposure control, adjustment of the mA and/or kV according to patient size, use of iterative reconstruction technique) TECHNICAL DOCUMENTATION: JOB ID: [id number] 2010 [employer]- All Rights Reserved Reading location - IP/workstation name: [email or web address]
== END ==
LOC: RAD 10:17
PROVIDERS: ATTEND Internal Medicine
DX: K35.80 Unspecified acute appendicitis (principal); K57.30 Diverticulosis of large intestine without perforation or abscess without bleeding
CPT/HCPCS: 74176

== ENCOUNTER 2020-06-12 05:32 | Day surgery (SDC) | payer MEDICARE, OTHER ==
[2020-06-08 09:25] LABS: HEMATOCRIT 35.3 % (36.0-47.0); HEMOGLOBIN 12.3 g/dL (12.0-15.5); MEAN CORPUSCULAR HEMOGLOBIN 30.8 pg (27.0-33.4); MEAN CORPUSCULAR HGB CONC 34.7 g/dL (32.0-36.0); MEAN CORPUSCULAR VOLUME 89 fl (80-97); PLATELET COUNT 276 10^3/uL (150-450); RED BLOOD COUNT 3.98 10^6/uL (3.72-5.28); RED CELL DISTRIBUTION WIDTH 14.4 % (11.5-14.0); WHITE BLOOD COUNT 8.7 10^3/uL (4.0-10.5)
[2020-06-08 09:49] LABS: ANION GAP 7 (5-19); BLOOD UREA NITROGEN 18 mg/dL (7-20); CALCIUM 9.1 mg/dL (8.4-10.2); CARBON DIOXIDE 27 mmol/L (22-30); CHLORIDE 105 mmol/L (98-107); GLUCOSE 112 mg/dL (75-110); POTASSIUM 3.9 mmol/L (3.6-5.0)
--- NOTE | 2020-06-08 14:21 | RADIOLOGY REPORT (SQ) ---
EXAM DESCRIPTION: CHEST 2 VIEWS IMAGES COMPLETED DATE/TIME: 06/08/2020 1:53 pm REASON FOR STUDY: PRE OP TESTING COMPARISON: None. EXAM PARAMETERS: NUMBER OF VIEWS: two views TECHNIQUE: Digital Frontal and Lateral radiographic views of the chest acquired. RADIATION DOSE: NA LIMITATIONS: none FINDINGS: LUNGS AND PLEURA: No opacities, masses or pneumothorax. No pleural effusion. MEDIASTINUM AND HILAR STRUCTURES: No masses or contour abnormalities. HEART AND VASCULAR STRUCTURES: Heart normal size. No evidence for failure. BONES: No acute findings. HARDWARE: None in the chest. OTHER: No other significant finding. IMPRESSION: NO ACUTE RADIOGRAPHIC FINDING IN THE CHEST. TECHNICAL DOCUMENTATION: JOB ID: [id number] 2010 [employer]- All Rights Reserved Reading location - IP/workstation name: [email or web address]
--- NOTE | 2020-06-08 19:34 | EKG REPORT ---
SEVERITY:- ABNORMAL ECG - SINUS RHYTHM CONSIDER ANTEROSEPTAL INFARCT BORDERLINE T ABNORMALITIES, ANTERIOR LEADS : Confirmed by: Kristy Gooden MD 08-Jun-2020 19:33:38
[~2020-06-12 05:32] MED LIST changes: +ACETAMINOPHEN 1,000 MG/100 ML RTUPB IV ONE; +ACETAMINOPHEN 1,000 MG/100 ML RTUPB IV PRN; +CEFAZOLIN 2 GM/D5W RTU 2 GM/50 ML RTUPB IV ONE; +CEFAZOLIN 2 GM/D5W RTU 2 GM/50 ML RTUPB IV PRN; -GLYCOPYRROLATE 1 MG/5 ML VIAL ONE; +IBUPROFEN 800 MG in NORMAL SALINE 250 ML IV PRN; +LACTATED RINGERS 1000 ML IV PRN; +LIDOCAINE 0.5% INJ-PF (5 MG/ML) 50 ML SDV SUBCUT PRN; -NEOSTIGMINE METHYLSULFATE 10 MG/10 ML VIAL ONE; -ONDANSETRON HCL INJ/PF 4 MG/2 ML SDV ONE; +PREGABALIN 50 MG CAPSULE ONE; +PREGABALIN 50 MG CAPSULE PO PRN; -ROCURONIUM BROMIDE INJ 50 MG/5 ML VIAL IV ONE; -SUCCINYLCHOLINE CHLORIDE INJ 200 MG/10 ML VIAL ONE
[2020-06-12 06:30] LABS: POTASSIUM 3.7 mmol/L (3.6-5.0)
[2020-06-12] MEDS ORDERED: LIDOCAINE 2% INJ (20 MG/ML) 20 ML MDV ONE (06:50)
[2020-06-12] MEDS ORDERED: FENTANYL CITRATE INJ/PF 100 MCG/2 ML AMPUL ONE ×2 (06:52→10:30)
[2020-06-12] MEDS ORDERED: EPHEDRINE SULFATE INJ 50 MG/1 ML AMPULE ONE (06:52)
[2020-06-12] MEDS ORDERED: SUGAMMADEX SODIUM 200 MG/2 ML SDV IV ONE (06:52)
[2020-06-12] MEDS ORDERED: MIDAZOLAM 2 MG/2 ML INJ ONE (06:52)
[2020-06-12] MEDS ORDERED: MORPHINE SULFATE 10 MG/ML INJ ONE (06:52)
[2020-06-12] MEDS ORDERED: PROPOFOL INJ 200 MG/20 ML VIAL IV ONE (06:53)
[2020-06-12] MEDS ORDERED: BUPIVACAINE HCL 0.25 % INJ/PF (2.5 MG/1 ML) 30 ML VIAL ONE (07:04)
[2020-06-12] MEDS ORDERED: FENTANYL CITRATE INJ/PF 100 MCG/2 ML AMPUL IV PRN ×2 (08:05)
[2020-06-12] MEDS ORDERED: OXYCODONE-ACETAMINOPHEN 5-325 MG TABLET PO PRN (08:05)
[2020-06-12] MEDS ORDERED: MEPERIDINE HCL/PF INJ 25 MG/1 ML DISP.SYRIN IV PRN (08:05)
[2020-06-12] MEDS ORDERED: PROMETHAZINE HCL INJ 25 MG/1 ML VIAL IV PRN (08:05)
[2020-06-12] MEDS ORDERED: MORPHINE SULFATE 10 MG/ML INJ IV PRN (08:05)
[2020-06-12] MEDS ORDERED: DIPHENHYDRAMINE HCL 50 MG/ML VIAL IV PRN (08:05)
--- NOTE | 2020-06-12 10:18 | Operative Report ---
Nonrecallable Operative Report DATE OF SURGERY: 06/12/20 PREOPERATIVE DIAGNOSIS: Ventral incisional hernia, symptomatic, incarcerated POSTOPERATIVE DIAGNOSIS: Same as above OPERATION: Robot-assisted laparoscopic ventral incisional hernia repair with mesh SURGEON: CORRINE COLLAZO 1ST SENIOR CARE SPECIALIST: VICENTA MEIER ANESTHESIA: GA TISSUE REMOVED OR ALTERED: None COMPLICATIONS: None apparent ESTIMATED BLOOD LOSS: Minimal PROCEDURE: Drains/implants: 20 x [address] hernia mesh. Procedure in detail: After informed consent was obtained, the patient was brought to the operating room and laid in the supine position. The area of the abdomen was prepped and draped in a normal sterile fashion. A 5 mm trocar and 5 mm camera was inserted into the left upper quadrant abdominal wall, and into the abdominal cavity. This was done using the Optiview technique. Gas insufflation was attached, and pneumoperitoneum was achieved. Next an 8 mm robotic trocar was placed in the left lower quadrant. A 12 mm trocar was placed in the left lateral abdomen. The 5 mm trocar was removed and replaced with an 8 mm robotic trocar. The robot was brought over the patient and docked appropriately. I then assumed my position at the surgeon's console. Attention was turned to the incarcerated ventral hernia. There was a large amount of omentum and small bowel stuck within the hernia sac. Using gentle retraction and sharp dissection, the hernia contents were reduced back into the abdominal cavity. The fascia was cleared proximally and distally. Distal to the incisional hernia there was found to be another small defect, consistent with an umbilical hernia. Fat was cleared away from the umbilical hernia defect as well. The 2 defects together were measured, and found to be approximately 10 cm in craniocaudal dimension. A 20 x 15 cm hernia mesh was chosen to adequately cover the defect. Next, the midline was reapproximated using #1 V-Loc suture in simple running fashion. This was done with overlapping sutures. Next, the hernia mesh was inserted into the abdominal cavity and apposed to the anterior abdominal wall using the EPS. Next, the mesh was sutured to the anterior abdominal wall using 2-0 VLock suture in circumferential fashion. Once this was completed, the mesh was found to lie in good position. The robot was then undocked, and I scrubbed back into the patient's bedside. The 8 mm trocar sites were closed using 0 Vicryl suture in simple interrupted fashion with the aid of the Tejas-Coral device. The 12 mm trocar site was closed using 0 Vicryl suture in cnrxme-bz-pzylh fashion with the aid of the Tejas-Coral device. The overlying skin was closed using 4-0 Vicryl Rapide suture in a running subcuticular fashion. Dressings were then placed, and the procedure was concluded. All sponge, instrument, and needle counts were correct x2. Condition: Stable. Vicenta Meier PA-C was scrubbed and present the entirety of the procedure. She assisted with all portions of the procedure including opening of the abdomen, placement of the trochars, docking of the robot, exchanging of the robotic instruments, closure of the fascia, and closure of the skin.
--- NOTE | 2020-06-12 10:20 | Discharge Summary ---
Discharge Summary (SDC) - Discharge Final Diagnosis: incarcerated ventral incisional hernia Date of Surgery: 06/12/20 Discharge Date: 06/12/20 Condition: Stable Treatment or Instructions: Discharge home. Diet as tolerated. Activity: No lifting greater than 10 pounds x 6 weeks. Follow-up with [facility] in 7 to 10 days. Sheldon 10/325 mg p.o. every 6 hours as needed for pain. Okay to shower starting on . Referrals: CHANO RODRIGUEZ MD [Primary Care Provider] - Discharge Diet: As Tolerated Respiratory Treatments at Home: Incentive Spirometer Discharge Activity: Balance Activity w/Rest, No Lifting Over 10 Pounds, No Lifting/Push/Pulling Home Care Assistance: None Needed Report the Following to Your Physician Immediately: Shortness of Breath, Nausea, Vomiting, Increase in Pain, Fever over 101 Degrees, Unusual Bleeding, Swelling, Warmth, Increased Soreness
[2020-06-12] MEDS ORDERED: HYDROCODONE/ACETAMINOPHEN 10-325 MG TABLET PO PRN (10:25)
[2020-06-12] MEDS: FENTANYL CITRATE INJ/PF 100 MCG/2 ML AMPUL IV PRN ×2 (10:32→10:39)
[2020-06-12] MEDS ORDERED: HYDROCODONE/ACETAMINOPHEN 10-325 MG TABLET ONE (11:13)
[2020-06-12 12:37] VITALS: BP 127/72
[2020-06-12] MEDS ORDERED: SUCCINYLCHOLINE CHLORIDE INJ 200 MG/10 ML VIAL ONE (15:49)
[2020-06-12] MEDS ORDERED: METOCLOPRAMIDE HCL INJ/PF 10 MG/2 ML SDV ONE (15:49)
[2020-06-12] MEDS ORDERED: ONDANSETRON HCL INJ/PF 4 MG/2 ML SDV ONE (15:49)
[2020-06-12] MEDS ORDERED: PHENYLEPHRINE HCL INJ/PF 10 MG/1 ML SDV ONE (15:49)
[2020-06-12] MEDS ORDERED: DEXAMETHASONE SOD PHOSPHATE INJ 4 MG/1 ML VIAL ONE (15:49)
[2020-06-12] MEDS ORDERED: ROCURONIUM BROMIDE INJ 50 MG/5 ML VIAL IV ONE (15:49)
== END 2020-06-12 12:10 | disposition home or self-care (01) ==
LOC: OROUT 05:32
PROVIDERS: ATTEND Surgery
DX: K43.0 Incisional hernia with obstruction, without gangrene (principal); E11.9 Type 2 diabetes mellitus without complications; I10 Essential (primary) hypertension; M10.9 Gout, unspecified; R32 Unspecified urinary incontinence; Z86.010 Personal history of colon polyps; R05 Cough; Z01.812 Encounter for preprocedural laboratory examination; Z20.822 Contact with and (suspected) exposure to COVID-19; M19.90 Unspecified osteoarthritis, unspecified site; Z79.899 Other long term (current) drug therapy; Z79.82 Long term (current) use of aspirin; Z79.84 Long term (current) use of oral hypoglycemic drugs; Z90.49 Acquired absence of other specified parts of digestive tract
CPT/HCPCS: 93005; 36415 ×2; 82947; 84132; 85027; 80048; 71046; 93010; 49655; C1781; U0003; J2250; J3490 ×3; J1100; J3010; J2765; J2370; J0330; J2405; J7050; J2704; A9270 ×2; J0690; J0131; J1741; C9803; 790; 87635; J2270